=== PATIENT | female | born 1980 | race Two or more races ===

== ENCOUNTER 2021-10-15 10:00 | Inpatient (IN) | payer OTHER ==
[~2021-10-15] VITALS: Ht 149.9 cm; Wt 50.8 kg
[2021-10-22] MEDS ORDERED: HYOSCYAMINE0.125 M1 SL (10:02)
[2021-10-22] MEDS ORDERED: INTESTINEX680 M1 PO (10:02)
[2021-10-22] MEDS ORDERED: OXYC1TAB9 PO (10:03)
[2021-10-22] MEDS ORDERED: Neurin-Sl Tablet Sl SL (10:03)
[2021-10-22] MEDS ORDERED: PROTONIX40 MG PO (10:03)
== END 2021-10-22 10:59 | disposition home or self-care (01) | DRG 330 ==
LOC: SURH 10-19 06:38 → O/R 10-19 06:38 → SURH 10-19 10:00
PROVIDERS: ADMIT Surgery; ATTEND Surgery
PROC: 0DTG4ZZ Resection of Left Large Intestine, Percutaneous Endoscopic Approach (ICD-10-PCS; principal; 2021-10-19 12:45)
DX: C18.6 Malignant neoplasm of descending colon (principal); K92.1 Melena; R59.0 Localized enlarged lymph nodes; D64.9 Anemia, unspecified; R19.4 Change in bowel habit; D50.0 Iron deficiency anemia secondary to blood loss (chronic)

== ENCOUNTER 2021-10-31 23:14 | Emergency (ER) | payer OTHER ==
[~2021-10-31] VITALS: Ht 149.9 cm; Wt 49.0 kg
[~2021-10-31 23:14] MED LIST: HYOSCYAMINE0.125 M1 SL; INTESTINEX680 M1 PO; Neurin-Sl Tablet Sl SL; OXYC1TAB9 PO; PROTONIX40 MG PO
[2021-10-31] MEDS ORDERED: INTEGRA F CAPS1 EACH (23:45)
[2021-10-31] MEDS ORDERED: NEURONTIN300 MG (23:46)
[2021-10-31] MEDS ORDERED: PROTONIX20 MG (23:46)
[2021-11-01] MEDS ORDERED: METRONIDAZOLE500 MG PO (05:38)
[2021-11-01] MEDS ORDERED: PEPCID AC20 MG PO (05:38)
[2021-11-01] MEDS ORDERED: LEVSIN/SL0.125 MG SL (05:43)
== END 2021-11-01 05:50 | disposition home or self-care (01) ==
LOC: ER 23:14
DX: R19.7 Diarrhea, unspecified (principal); R10.84 Generalized abdominal pain

== ENCOUNTER 2021-11-18 10:31 | Inpatient (IN) | payer OTHER ==
[~2021-11-18] VITALS: Ht 149.9 cm; Wt 47.6 kg
[~2021-11-18 10:31] MED LIST changes: +INTEGRA F CAPS1 EACH; +LEVSIN/SL0.125 MG SL; +METRONIDAZOLE500 MG PO; +NEURONTIN300 MG; +PEPCID AC20 MG PO; +PROTONIX20 MG
[2021-11-18] MEDS ORDERED: CHOLESTYRAMINE L4 GM (10:49)
[2021-11-19] MEDS ORDERED: CAPECITABINE500 MG (11:31)
[2021-11-19] MEDS ORDERED: INTEGRA F CAPS1 EAC1 (11:31)
[2021-11-19] MEDS ORDERED: ABANEU-SL TABL1 EACH (11:31)
[2021-11-19] MEDS ORDERED: SUCRALFATE1 GM/10 ML (11:31)
[2021-11-23] MEDS ORDERED: ABANEU-SL TABL1 EACH SL (19:36)
[2021-11-23] MEDS ORDERED: INTEGRA F CAPS1 EAC1 PO (19:36)
[2021-11-23] MEDS ORDERED: PROTONIX20 MG PO (19:36)
[2021-11-23] MEDS ORDERED: INTESTINEX680 M1 PO (19:36)
[2021-11-23] MEDS ORDERED: VANCOMYCIN PO (19:36)
== END 2021-11-23 22:20 | disposition home or self-care (01) | DRG 920 ==
LOC: ER 10:31 → SURG 20:00 → SURH 11-19 17:46
PROVIDERS: ADMIT Internal Medicine Geriatric Medicine; ATTEND Internal Medicine Geriatric Medicine
PROC: BW2110Z Computerized Tomography (CT Scan) of Abdomen and Pelvis using Low Osmolar Contrast, Unenhanced and Enhanced (ICD-10-PCS; 2021-11-18)
PROC: 30233N1 Transfusion of Nonautologous Red Blood Cells into Peripheral Vein, Percutaneous Approach (ICD-10-PCS; principal; 2021-11-19)
PROC: B54MZZZ Ultrasonography of Right Upper Extremity Veins (ICD-10-PCS; 2021-11-23)
DX: K91.840 Postprocedural hemorrhage of a digestive system organ or structure following a digestive system procedure (principal); D50.0 Iron deficiency anemia secondary to blood loss (chronic); C18.6 Malignant neoplasm of descending colon; A04.72 Enterocolitis due to Clostridium difficile, not specified as recurrent; Z20.822 Contact with and (suspected) exposure to COVID-19

== ENCOUNTER 2023-03-21 05:35 | Day surgery (SDC) | payer OTHER ==
[~2023-03-21] VITALS: Ht 149.9 cm; Wt 55.3 kg
[~2023-03-21 05:35] MED LIST changes: +ABANEU-SL TABL1 EACH; +ABANEU-SL TABL1 EACH SL; +CAPECITABINE500 MG; +CHOLESTYRAMINE L4 GM; +INTEGRA F CAPS1 EAC1; +INTEGRA F CAPS1 EAC1 PO; +PROTONIX20 MG PO; +SUCRALFATE1 GM/10 ML; +VANCOMYCIN PO
[2023-03-21] MEDS ORDERED: PERCOCET 5-3251 EACH PO (09:35)
[2023-03-21] MEDS ORDERED: PEPCID AC20 MG PO (09:35)
[2023-03-21] MEDS ORDERED: ZOFRAN8 MG PO (09:36)
[2023-03-21] MEDS ORDERED: DICY20TA PO (09:38)
== END 2023-03-21 11:45 | disposition home or self-care (01) ==
LOC: CIR.AMB 05:35
PROVIDERS: ATTEND Surgery
DX: K81.1 Chronic cholecystitis (principal); D13.5 Benign neoplasm of extrahepatic bile ducts; Z20.822 Contact with and (suspected) exposure to COVID-19